=== PATIENT | female | born 1965 | race Caucasian/White ===

== ENCOUNTER → 2019-07-03 | Outpatient (CLI) | payer BC ==
[~2019-07-03] MED LIST: VITAMIN D1000 IU PO
[2019-07-04 15:08] LABS: ACID FAST SPEC PROCESSING Direct Inoculation (.)
[2019-08-16 13:06] LABS: ACID FAST CULTURE Negative (.)
== END | disposition home or self-care (01) ==
LOC: LAB 09:02
PROVIDERS: Orthopaedic Surgery
DX: M71.22 Synovial cyst of popliteal space [Baker], left knee (principal)

== ENCOUNTER → 2021-12-19 | Outpatient (CLI) | payer BC | END | disposition home or self-care (01) | LOC: ORTHO 13:11 | PROVIDERS: ATTEND Orthopaedic Surgery | DX: M25.562 Pain in left knee (principal) ==

== ENCOUNTER → 2022-02-12 | Day surgery (SDC) | payer BC ==
[2022-02-09 13:54] VITALS: BP 146/86
[~2022-02-12] VITALS: Ht 167.6 cm; Wt 99.8 kg
[~2022-02-12] MED LIST changes: +MULTIVITAMIN1 EACH PO
[2022-02-12 06:52] VITALS: BP 138/84
[2022-02-12 08:18] VITALS: BP 114/66
[2022-02-12 08:33] VITALS: BP 127/75
[2022-02-12 08:48] VITALS: BP 114/72
[2022-02-12 12:52] VITALS: BP 117/72
== END | disposition home or self-care (01) ==
LOC: SDC 02-09 14:00
PROVIDERS: ATTEND Orthopaedic Surgery
DX: R22.42 Localized swelling, mass and lump, left lower limb (principal); M17.12 Unilateral primary osteoarthritis, left knee; Z98.890 Other specified postprocedural states

== ENCOUNTER 2022-07-31 06:11 | Emergency (ER) | payer BC ==
[~2022-07-31] VITALS: Ht 165.1 cm; Wt 99.8 kg
[2022-07-31 09:33] VITALS: BP 173/94
[2022-07-31 10:06] VITALS: BP 143/92
[2022-07-31 10:20] VITALS: BP 153/87
[2022-07-31 10:35] VITALS: BP 155/100
== END 2022-07-31 11:01 | disposition home or self-care (01) ==
LOC: ED 06:11
DX: T18.128A Food in esophagus causing other injury, initial encounter (principal); Z88.6 Allergy status to analgesic agent; Z79.899 Other long term (current) drug therapy; Z90.49 Acquired absence of other specified parts of digestive tract; Y92.89 Other specified places as the place of occurrence of the external cause

== ENCOUNTER → 2023-11-03 | Outpatient (CLI) | payer BC | END | disposition home or self-care (01) | LOC: US 08:02 → MAMMO 09:30 | PROVIDERS: ATTEND Family Medicine | DX: Z12.31 Encounter for screening mammogram for malignant neoplasm of breast (principal); N32.89 Other specified disorders of bladder; N84.1 Polyp of cervix uteri ==

== ENCOUNTER → 2024-06-07 | Day surgery (SDC) | payer BC ==
[~2024-06-07] VITALS: Ht 165.1 cm; Wt 98.0 kg
[~2024-06-07] MED LIST changes: +Balanced Salt Solution 500 ML OPH SCH; +Cefuroxime Sodium 5 MG in BALANCED SALT IRRIG SOLN NO.2 0.5 ML,SYRINGE, DISPOSABLE, 10 ... IO SCH; +Midazolam Hydrochloride 2 MG/2 ML VIAL IV ONE; +OFLOXACIN 0.3% 5 ML BOTTLE ONE; +OFLOXACIN 0.3% 5 ML BOTTLE OPH SCH; +PHENYLEPHRINE/KETOROLAC 4 ML in Balanced Salt Solution 500 ML OPH SCH; +POVIDONE IODINE 5% OPHTHALMIC 30 ML BOTTLE OPH ONE; +POVIDONE IODINE 5% OPHTHALMIC 30 ML BOTTLE OPH SCH; +Phenylephrine Hydrochloride 2 ML BOT OPH ONE; +Phenylephrine Hydrochloride 2 ML BOT OPH SCH; +Proparacaine Hydrochloride 15 ML BOT OPH ONE; +Proparacaine Hydrochloride 15 ML BOT OPH SCH; +SODIUM CHLORIDE 0.9% 1,000 ML IV SCH; +TROPICAMIDE 3 ML BOT OPH ONE; +TROPICAMIDE 3 ML BOT OPH SCH; +Tetracaine Hydrochloride 0.5% 4 ML BOT OPH ONE; +Tetracaine Hydrochloride 0.5% 4 ML BOT OPH SCH; +prednisoLONE acetate 1% OPHTHALMIC 5 ML BOT OPH ONE; +prednisoLONE acetate 1% OPHTHALMIC 5 ML BOT OPH SCH
[2024-06-07 08:15] VITALS: BP 131/72
[2024-06-07 10:10] VITALS: BP 130/86
[2024-06-07 10:25] VITALS: BP 135/80
[2024-06-07 10:40] VITALS: BP 135/74
== END | disposition home or self-care (01) ==
LOC: SDC 06-02 11:00
PROVIDERS: ATTEND Ophthalmology
DX: H25.11 Age-related nuclear cataract, right eye (principal); F10.90 Alcohol use, unspecified, uncomplicated; Z88.5 Allergy status to narcotic agent; Z79.899 Other long term (current) drug therapy; Z98.890 Other specified postprocedural states

== ENCOUNTER → 2024-07-12 | Day surgery (SDC) | payer BC ==
[~2024-07-12] VITALS: Ht 165 cm; Wt 97.0 kg
[~2024-07-12] MED LIST changes: +ALEVE220 MG PO; +MAGNESIUM400 M1 PO
[2024-07-12 10:00] VITALS: BP 143/79
[2024-07-12 11:32] VITALS: BP 114/81
[2024-07-12 11:45] VITALS: BP 122/78
[2024-07-12 12:01] VITALS: BP 121/72
== END | disposition home or self-care (01) ==
LOC: SDC 07-07 13:15
PROVIDERS: ATTEND Ophthalmology
DX: H25.12 Age-related nuclear cataract, left eye (principal); F10.90 Alcohol use, unspecified, uncomplicated; Z90.49 Acquired absence of other specified parts of digestive tract; Z98.41 Cataract extraction status, right eye; Z88.5 Allergy status to narcotic agent; Z88.0 Allergy status to penicillin; Z98.890 Other specified postprocedural states; Z79.899 Other long term (current) drug therapy

== ENCOUNTER → 2024-12-06 | Outpatient (CLI) | payer BC ==
[~2024-12-06] MED LIST changes: -Balanced Salt Solution 500 ML OPH SCH; -Cefuroxime Sodium 5 MG in BALANCED SALT IRRIG SOLN NO.2 0.5 ML,SYRINGE, DISPOSABLE, 10 ... IO SCH; -Midazolam Hydrochloride 2 MG/2 ML VIAL IV ONE; -OFLOXACIN 0.3% 5 ML BOTTLE ONE; -OFLOXACIN 0.3% 5 ML BOTTLE OPH SCH; -PHENYLEPHRINE/KETOROLAC 4 ML in Balanced Salt Solution 500 ML OPH SCH; -POVIDONE IODINE 5% OPHTHALMIC 30 ML BOTTLE OPH ONE; -POVIDONE IODINE 5% OPHTHALMIC 30 ML BOTTLE OPH SCH; -Phenylephrine Hydrochloride 2 ML BOT OPH ONE; -Phenylephrine Hydrochloride 2 ML BOT OPH SCH; -Proparacaine Hydrochloride 15 ML BOT OPH ONE; -Proparacaine Hydrochloride 15 ML BOT OPH SCH; -SODIUM CHLORIDE 0.9% 1,000 ML IV SCH; -TROPICAMIDE 3 ML BOT OPH ONE; -TROPICAMIDE 3 ML BOT OPH SCH; -Tetracaine Hydrochloride 0.5% 4 ML BOT OPH ONE; -Tetracaine Hydrochloride 0.5% 4 ML BOT OPH SCH; -prednisoLONE acetate 1% OPHTHALMIC 5 ML BOT OPH ONE; -prednisoLONE acetate 1% OPHTHALMIC 5 ML BOT OPH SCH
== END | disposition home or self-care (01) ==
LOC: MAMMO 02:44
PROVIDERS: ATTEND Family Medicine
DX: Z12.31 Encounter for screening mammogram for malignant neoplasm of breast (principal); R92.323 Mammographic fibroglandular density, bilateral breasts